=== PATIENT | female | born 1935 | race African-American/Black ===

== ENCOUNTER 2019-07-29 17:23 | Inpatient (IN) | payer OTHER ==
[~2019-07-29] VITALS: Ht 157.5 cm; Wt 46.7 kg
[2019-07-29] MEDS ORDERED: MORPHINE SULFATE 4 MG/ML CPJ (NOT FOR IM USE) IV STA (18:42)
[2019-07-29] MEDS ORDERED: ONDANSETRON HCL 4MG/2ML INJ IV STA (18:42)
[2019-07-29 19:13] LABS: BASOPHILS % 0.5 % (0.0-2.0); EOSINOPHILS % 0.3 % (0.0-5.0); HEMATOCRIT. 37.6 % (36.0-48.0); HEMOGLOBIN. 12.4 g/dL (12.0-16.0); LYMPHOCYTES % 7.5 % (20.0-50.0); MEAN CORPUSCULAR HEMOGLOBIN 29.1 pg (28.0-32.0); MEAN CORPUSCULAR VOLUME 88.6 fL (81.0-99.0); MEAN PLATELET VOLUME 9.9 fl (7.4-10.4); MONOCYTES % 6.1 % (2.0-8.0); NEUTROPHILS % 85.6 % (40.0-76.0); PLATELET 186 x1000/uL (130-400); RED BLOOD CELL COUNT 4.24 mill/uL (4.2-5.4); RED CELL DISTRIBUTION WIDTH 15.6 % (11.6-14.6)
[2019-07-29 19:20] LABS: PROTHROMBIN TIME 10.8 sec (9.6-11.0)
[2019-07-29 19:21] LABS: CHLORIDE 105 mEq/L (98-107)
[2019-07-29] MEDS ORDERED: POTASSIUM CHLORIDE 20MEQ TABLET SR PO NR (19:45)
[2019-07-29] MEDS ORDERED: KCL 20MEQ/100ML PREMIX 100 ML IV SCH (19:45)
[2019-07-29] MEDS ORDERED: CLONIDINE 0.1MG TABLET PO PRN (22:45)
[2019-07-29] MEDS ORDERED: MAGNESIUM/ALUMINUM HYDROXIDE/SIMETHICONE 30ML UDC PO PRN (22:45)
[2019-07-29] MEDS ORDERED: HYDRALAZINE 20MG/ML VIAL IV PRN (22:45)
[2019-07-29] MEDS ORDERED: ONDANSETRON HCL 4MG/2ML INJ IV PRN (22:45)
[2019-07-29] MEDS ORDERED: ACETAMINOPHEN 325MG TABLET PO PRN (22:45)
[2019-07-29] MEDS ORDERED: DIPHENHYDRAMINE 50MG/ML VIAL IV PRN (22:45)
[2019-07-29] MEDS: MORPHINE SULFATE 2 MG/ML CPJ (NOT FOR IM USE) IV PRN (23:31)
[2019-07-30] MEDS ORDERED: HYDRALAZINE 20MG/ML VIAL IV PRN (03:45)
[2019-07-30 04:00] VITALS: BP 135/62
[2019-07-30 04:30] VITALS: BP 135/62
[2019-07-30] MEDS ORDERED: POTASSIUM CHLORIDE 20MEQ TABLET SR PO NR (06:00)
[2019-07-30] MEDS: MORPHINE SULFATE 2 MG/ML CPJ (NOT FOR IM USE) IV PRN (06:47)
[2019-07-30 08:00] VITALS: BP 114/81
[2019-07-30] MEDS: FAMOTIDINE 20MG/2ML VIAL IV SCH (08:36)
[2019-07-30] MEDS: DEXT 5%/0.45% NACL KCL 20MEQ/L 1,000 ML IV SCH ×2 (08:41→23:49)
[2019-07-30] MEDS ORDERED: LORAZEPAM 2MG/ML CPJ IV PRN (12:00)
[2019-07-30 12:15] LABS: BASOPHILS % 0.5 % (0.0-2.0); EOSINOPHILS % 1.8 % (0.0-5.0); HEMATOCRIT. 36.5 % (36.0-48.0); HEMOGLOBIN. 12.1 g/dL (12.0-16.0); LYMPHOCYTES % 9.2 % (20.0-50.0); MEAN CORPUSCULAR HEMOGLOBIN 29.3 pg (28.0-32.0); MEAN CORPUSCULAR VOLUME 88.7 fL (81.0-99.0); MEAN PLATELET VOLUME 10.5 fl (7.4-10.4); MONOCYTES % 6.6 % (2.0-8.0); NEUTROPHILS % 81.9 % (40.0-76.0); PLATELET 163 x1000/uL (130-400); RED BLOOD CELL COUNT 4.12 mill/uL (4.2-5.4); RED CELL DISTRIBUTION WIDTH 15.7 % (11.6-14.6)
[2019-07-30 12:56] LABS: CHLORIDE 102 mEq/L (98-107)
[2019-07-30] MEDS ORDERED: POTASSIUM CHLORIDE INJ 40 MEQ in DEXT 5% WATER 250 ML IV ONE (17:00)
[2019-07-30] MEDS ORDERED: MAGNESIUM 4 G PREMIX 100 ML IV ONE (17:00)
[2019-07-30 20:00] VITALS: BP 150/74
[2019-07-31] VITALS: BP 144/72
[2019-07-31 04:00] VITALS: BP 141/75
[2019-07-31 07:53] LABS: CHLORIDE 104 mEq/L (98-107)
[2019-07-31] MEDS: FAMOTIDINE 20MG/2ML VIAL IV SCH (09:00)
[2019-07-31] MEDS: DEXT 5%/0.45% NACL KCL 20MEQ/L 1,000 ML IV SCH ×2 (10:40→21:53)
[2019-07-31] MEDS ORDERED: POTASSIUM CHLORIDE INJ 40 MEQ in DEXT 5% WATER 250 ML IV SCH (11:00)
[2019-07-31] MEDS: MORPHINE SULFATE 2 MG/ML CPJ (NOT FOR IM USE) IV PRN (11:57)
[2019-07-31] MEDS: DILTIAZEM HCL 60MG TABLET PO SCH ×3 (14:00→21:53)
[2019-07-31 20:00] VITALS: BP 144/77
[2019-08-02 19:11] LABS: BARBITURATE SCREEN Negative ug/mL (Cutoff:0.1); BENZODIAZEPINE SCREEN Negative ng/mL (Cutoff:20); OPIATES SCREEN Negative ng/mL (Cutoff:5); PHENCYCLIDINE SCREEN Negative ng/mL (Cutoff:8)
== END 2019-07-31 22:45 | disposition short-term general hospital (02) | DRG 536 ==
LOC: ER 17:51 → 6WST 20:46 → EDBEDREQTM 20:53 → EDBEDREQ 20:53 → ENRESERV 07-30 02:10
PROVIDERS: ADMIT Internal Medicine; ATTEND Internal Medicine
DX: S72.012A Unspecified intracapsular fracture of left femur, initial encounter for closed fracture (principal); I10 Essential (primary) hypertension; E11.9 Type 2 diabetes mellitus without complications; E87.6 Hypokalemia; W18.39XA Other fall on same level, initial encounter; E83.42 Hypomagnesemia; M19.90 Unspecified osteoarthritis, unspecified site; Y93.89 Activity, other specified; Y92.89 Other specified places as the place of occurrence of the external cause; Y99.8 Other external cause status
CPT/HCPCS: 36415; 71045; 73502; 73562; 80048; 80307; 83735; 93005; 93306; 99285; J0360; J2060; J2270; J2405; J3475; J3480; J3490; J7060